=== PATIENT | male | born 2000 | race Caucasian/White ===

== ENCOUNTER → 2021-08-16 | Outpatient (CLI) | payer BC | END | disposition home or self-care (01) | LOC: COVID19 15:34 | PROVIDERS: ATTEND Student in an Organized Health Care Education/Training Program | DX: U07.1 COVID-19 (principal) ==

== ENCOUNTER 2021-09-07 10:19 | Emergency (ER) | payer BC ==
[~2021-09-07] VITALS: Ht 180.3 cm; Wt 56.7 kg
[2021-09-07 10:24] VITALS: BP 124/77
== END 2021-09-07 15:20 | disposition left against medical advice (07) ==
LOC: ED 10:19
DX: R07.89 Other chest pain (principal); R06.02 Shortness of breath; Z53.21 Procedure and treatment not carried out due to patient leaving prior to being seen by health care provider